=== PATIENT | female | born 1985 | race Caucasian/White ===

== ENCOUNTER → 2018-08-21 | Day surgery (SDC) | payer OTHER ==
[~2018-08-21] VITALS: Ht 154.9 cm; Wt 84.4 kg
[~2018-08-21] MED LIST: ACETAMINOPHEN 325MG TABLET PO PRN; AMLO2.5T45 PO; BUPIVACAINE HCL/DEXTROSE/PF 0.75% 2ML AMP INJ ONE; BUPIVACAINE HCL/PF 0.75% (7.5MG/ML) 10ML ONE; INDOMETHACIN 50MG CAPSULE PO NR; INDOMETHACIN 50MG CAPSULE PO SCH; KETOROLAC 30MG/ML VIAL IV ONE; LABETALOL 5MG/ML SYR 20 MG/4 ML SYRINGE IV PRN; LACTATED RINGERS 1,000 ML IV SCH; MEPERIDINE HCL/PF 25MG/ML CPJ IV PRN; ONDANSETRON HCL 4MG/2ML INJ IV PRN; PREN-99 PO; PROG200C7 VG
[2018-08-21 14:48] LABS: CLARITY URINE CLOUDY (CLEAR); COLOR URINE YELLOW (YELLOW); KETONES URINE 4+ (NEGATIVE); LEUKOCYTE ESTERASE URINE 2+ (NEGATIVE); NITRITE URINE NEGATIVE (NEGATIVE); OCCULT BLOOD URINE NEGATIVE (NEGATIVE); PROTEIN URINE NEGATIVE (NEGATIVE); SPECIFIC GRAVITY URINE 1.028 (1.005-1.030); UROBILINOGEN URINE 0.2 E.U./dL (0.2-1.0)
[2018-08-21 14:49] LABS: BASOPHILS % 0.2 % (0.0-2.0); EOSINOPHILS % 0.5 % (0.0-5.0); HEMATOCRIT. 35.3 % (36.0-48.0); HEMOGLOBIN. 11.6 g/dL (12.0-16.0); LYMPHOCYTES % 15.8 % (20.0-50.0); MEAN CORPUSCULAR HEMOGLOBIN 26.2 pg (28.0-32.0); MEAN CORPUSCULAR VOLUME 79.9 fL (81.0-99.0); MEAN PLATELET VOLUME 9.1 fl (7.4-10.4); MONOCYTES % 6.3 % (2.0-8.0); NEUTROPHILS % 77.2 % (40.0-76.0); PLATELET 187 x1000/uL (130-400); RED BLOOD CELL COUNT 4.42 mill/uL (4.2-5.4); RED CELL DISTRIBUTION WIDTH 18.7 % (11.6-14.6)
[2018-08-21 14:54] LABS: CHLORIDE 105 mEq/L (98-107)
[2018-08-21 14:57] LABS: PARTIAL THROMBOPLASTIN TIME 31.7 sec (23.4-31.0); PROTHROMBIN TIME 10.2 sec (9.6-11.0)
== END | disposition home or self-care (01) ==
LOC: OR 13:09
PROVIDERS: ATTEND Acupuncturist
DX: O34.42 Maternal care for other abnormalities of cervix, second trimester (principal); O09.892 Supervision of other high risk pregnancies, second trimester; O34.32 Maternal care for cervical incompetence, second trimester; Z3A.18 18 weeks gestation of pregnancy; E66.9 Obesity, unspecified; O16.2 Unspecified maternal hypertension, second trimester; R82.998 Other abnormal findings in urine; Z37.0 Single live birth; Z95.828 Presence of other vascular implants and grafts; Q25.1 Coarctation of aorta; Z87.442 Personal history of urinary calculi
CPT/HCPCS: 36415; 59320; 80048; 81003; 85025; 85384; 85610; 85730; 87086; 87106; J3490; J7120